=== PATIENT | female | born 1985 | race Caucasian/White ===

== ENCOUNTER 2017-09-06 17:46 | Emergency (ER) | payer OTHER ==
[2017-09-06] MEDS ORDERED: Sodium Chloride 0.9% 1,000 ML IV ONE (19:55)
--- NOTE | 2017-09-06 20:11 | C.PDOC ---
History Of Present Illness 32 y/o female with PMHx of Migraine presents to ED with complaints of constant epigastric abdominal pain for 1 week. Patient reports burning sensation and "warmth" to abdomen with associate nausea and x1 episode of vomiting. Patient states she is spitting a lot and has been burping a lot. Patient denies diarrhea , dysuria, back pain or any other complaints at this time. Time Seen by Provider: 09/06/17 19:37 Chief Complaint (Nursing): Abdominal Pain History Per: Patient History/Exam Limitations: no limitations Onset/Duration Of Symptoms: Days Current Symptoms Are (Timing): Still Present Location Of Pain/Discomfort: Epigastric Past Medical History Reviewed: Historical Data, Nursing Documentation, Vital Signs Vital Signs: Last Vital Signs Temp 99.5 F 09/06/17 19:46 Pulse 124 H 09/06/17 19:46 Resp 18 09/06/17 19:46 BP 126/90 09/06/17 19:46 Pulse Ox 98 09/06/17 21:12 - Medical History PMH: Depression, Gastritis, Migraine Surgical History: Cholecystectomy Family History: States: No Known Family Hx - Social History Hx Tobacco Use: No Hx Alcohol Use: No Hx Substance Use: No - Immunization History Hx Tetanus Toxoid Vaccination: No Hx Influenza Vaccination: No Hx Pneumococcal Vaccination: No Review Of Systems Constitutional: Negative for: Fever, Chills Gastrointestinal: Positive for: Nausea, Vomiting, Abdominal Pain. Negative for : Diarrhea Genitourinary: Negative for: Dysuria Musculoskeletal: Negative for: Back Pain Skin: Negative for: Rash Physical Exam - Physical Exam Appears: Non-toxic, No Acute Distress Skin: Warm, Dry, No Rash Head: Atraumatic, Normacephalic Eye(s): bilateral: Normal Inspection, PERRL, EOMI Oral Mucosa: Moist Neck: Normal ROM, Supple Cardiovascular: Rhythm Regular Respiratory: Normal Breath Sounds, No Rales, No Rhonchi, No Wheezing Gastrointestinal/Abdominal: Soft, No Tenderness, No Guarding, No Rebound Neurological/Psych: Oriented x3 ED Course And Treatment - Laboratory Results Result Diagrams: 09/06/17 20:37 09/06/17 20:37 ECG: Interpreted By Me, Viewed By Me ECG Rhythm: Sinus Tachycardia Rate From EC (bpm) O2 Sat by Pulse Oximetry: 98 (ra) Pulse Ox Interpretation: Normal Medical Decision Making Medical Decision Making: Impression: Gastritis Plan: ecg, Pepcid, Zofran On reassessment. Patient is resting comfortably, in no distress, abdomen is soft , no rebound or guarding, and is tolerating PO. Patient has no signs or symptoms to suggest surgical pathology. Patient was advised to follow up without fail with physician/clinic or to return to the ER for reevaluation in 1- 2 days. Disposition Counseled Patient/Family Regarding: Studies Performed, Diagnosis, Need For Followup, Rx Given - Disposition Referrals: [facility] [Outside] [facility] [Outside] Disposition: HOME/ ROUTINE Disposition Time: 21:06 Condition: GOOD Additional Instructions: Vaya a stephens mdico o la clnica en 2-5 phipps sin falta, para mas evaluacin. [place] los medicamentos cassie indicado. Volver a la macey de emergencia en cualquier momento si los sntomas persisten o empeoran. Prescriptions: Omeprazole 20 mg PO DAILY #20 capsule. Instructions: Gastritis (DC) Forms: fflick (Bermudian) Print Language: PERSIAN - POA Present On Arrival: None - Clinical Impression Clinical Impression: Gastritis - PA / IRONWORKER / Resident Statement MD/DO has reviewed & agrees with the documentation as recorded. - Scribe Statement The provider has reviewed the documentation as recorded by the Deborahibrafiq Lynn All medical record entries made by the Deborahibrafiq were at my direction and personally dictated by me. I have reviewed the chart and agree that the record accurately reflects my personal performance of the history, physical exam, medical decision making, and the department course for this patient. I have also personally directed, reviewed, and agree with the discharge instructions and disposition.
[2017-09-06 20:30] LABS: HCG,QUALITATIVE URINE NEGATIVE (NEGATIVE)
[2017-09-06 20:33] LABS: SQUAMOUS EPITHIAL 10 /hpf (0-5); URINE BACTERIA RARE (<OCC); URINE BILIRUBIN NEGATIVE (NEGATIVE); URINE BLOOD 2+ (NEGATIVE); URINE CLARITY Hazy (Clear); URINE COLOR Yellow (YELLOW); URINE GLUCOSE (UA) NORMAL (Normal); URINE LEUKOCYTE ESTERASE TRACE Leu/uL (Negative); URINE NITRATE NEGATIVE (NEGATIVE); URINE PROTEIN NEGATIVE (NEGATIVE)
[2017-09-06 20:48] LABS: BASO % 0.3 % (0.0-2.0); EOS % 0.1 % (0.0-4.0); HEMOGLOBIN 12.8 g/dL (11.0-16.0); LYMPH # 1.4 K/uL (1.0-4.3); LYMPH % 17.2 % (20.0-40.0); MEAN CORPUSCULAR HEMOGLOBIN 29.7 pg (27.0-31.0); MEAN CORPUSCULAR HGB CONC 34.1 g/dL (33.0-37.0); MEAN PLATELET VOLUME 9.8 fL (7.2-11.7); MONO # 0.4 K/uL (0.0-0.8); MONO % 4.3 % (0.0-10.0); NEUT # 6.4 K/uL (1.8-7.0); NEUT % 78.1 % (50.0-75.0); NRBC % 0.1 % (0.0-2.0); RBC 4.31 Mil/uL (3.80-5.20); RED CELL DISTRIBUTION WIDTH 13.4 % (11.5-14.5); WHITE BLOOD COUNT 8.3 K/uL (4.8-10.8)
[2017-09-06 21:03] LABS: ALB/GLOB RATIO 1.1 (1.0-2.1); ALBUMIN 4.1 g/dL (3.5-5.0); ALT/SGPT 86 U/L (9-52); AST/SGOT 46 U/L (14-36); BLOOD UREA NITROGEN 7 mg/dL (7-17); CALCIUM 8.2 mg/dl (8.6-10.4); GFR AFRICAN-AMERICAN > 60; GFR NON-AFRICAN AMERICAN > 60; LIPASE 29 U/L (23-300)
[2017-09-06 21:20] VITALS: BP 122/82; PULSE 104; RESP 104; TEMP 98.4; O2SAT 100
--- NOTE | 2017-09-07 11:54 | CARD ---
APPROVED REPORT EKG Measurement Heart [id number] <Conclusion> Sinus tachycardia ST & T wave abnormality, consider lateral ischemia Abnormal ECG
== END 2017-09-06 21:20 | disposition home or self-care (01) ==
LOC: C.ER 17:46
DX: K29.70 Gastritis, unspecified, without bleeding (principal)
CPT/HCPCS: 80053; 81001; 83690; 84703; 85025; 93005; 96360; 99284; J7040

== ENCOUNTER 2018-03-18 09:16 | Emergency (ER) | payer OTHER ==
[2018-03-18] MEDS ORDERED: Aluminum Hydroxide/Magnesium Hydroxide Susp (30 mL) PO STA (09:37)
[2018-03-18] MEDS ORDERED: Sodium Chloride 0.9% 1,000 ML IV ONE (09:37)
--- NOTE | 2018-03-18 09:50 | C.PDOC ---
History Of Present Illness 33 year old female presents to ED for evaluation of epigastric abdominal pain radiating to umbilical area and midabdomen for the last 3 days. Patient admits to nausea and diarrhea. Pain is described as burning and is worse after eating. Otherwise, denies vomiting, blood in stool, dysuria, hematuria, urinary frequency, back pain, fever, or chills. LMP: "In September" this year, notes receiving depo injection. Time Seen by Provider: 03/18/18 09:30 Chief Complaint (Nursing): GI Problem History Per: Patient History/Exam Limitations: no limitations Onset/Duration Of Symptoms: Days (3) Current Symptoms Are (Timing): Still Present Location Of Pain/Discomfort: Epigastric Quality Of Discomfort: Burning Associated Symptoms: Nausea, Diarrhea. denies: Fever, Chills, Vomiting Exacerbating Factors: Food Alleviating Factors: None Recent travel outside of the [place]: No Additional History Per: Patient Past Medical History Reviewed: Historical Data, Nursing Documentation, Vital Signs Vital Signs: Last Vital Signs Temp 98 F 03/18/18 11:09 Pulse 86 03/18/18 11:09 Resp 18 03/18/18 11:09 BP 136/72 03/18/18 11:09 Pulse Ox 98 03/18/18 11:09 - Medical History PMH: Gastritis, Migraine Denies: Depression Surgical History: Cholecystectomy Family History: States: Unknown Family Hx - Social History Hx Tobacco Use: No Hx Alcohol Use: No Hx Substance Use: No - Immunization History Hx Tetanus Toxoid Vaccination: No Hx Influenza Vaccination: No Hx Pneumococcal Vaccination: No Review Of Systems Constitutional: Negative for: Fever, Chills, Malaise Eyes: Negative for: Vision Change Cardiovascular: Negative for: Chest Pain Respiratory: Negative for: Shortness of Breath Gastrointestinal: Positive for: Nausea, Abdominal Pain, Diarrhea. Negative for : Vomiting, Melena, Hematochezia, Rectal Pain Genitourinary: Negative for: Dysuria, Frequency, Hematuria, Vaginal Discharge Musculoskeletal: Negative for: Back Pain Skin: Negative for: Rash Neurological: Negative for: Headache Physical Exam - Physical Exam Appears: Non-toxic, No Acute Distress Skin: Normal Color, Warm, Dry Head: Atraumatic, Normacephalic Eye(s): bilateral: Normal Inspection, EOMI Oral Mucosa: Moist Neck: Normal ROM, Supple Chest: Symmetrical Cardiovascular: Rhythm Regular, No Murmur Respiratory: Normal Breath Sounds, No Rales, No Rhonchi, No Wheezing Gastrointestinal/Abdominal: Bowel Sounds, Soft, Tenderness (mild epigastric), No Distention, No Guarding, No Rebound, No Hernia Back: No CVA Tenderness Extremity: Normal ROM, No Tenderness, No Deformity Neurological/Psych: Oriented x3, Normal Speech ED Course And Treatment - Laboratory Results Result Diagrams: 03/18/18 09:50 03/18/18 09:50 O2 Sat by Pulse Oximetry: 100 (RA) Pulse Ox Interpretation: Normal Medical Decision Making Medical Decision Making: Impression: 33 year old female with epigastric abdominal pain, nausea, and diarrhea. Plan: * Blood work * Urinalysis * Maalox, Pepcid, IV fluids Labs reviewed with no acute findings. Discussed results with patient, and copy of report was provided. On re- examination, patient is resting comfortably in no acute distress. Patient reports improvement of abdominal pain. Abdomen is flat not rigid and no guarding to suggest any surgical pathology. Based on clinical history and findings, no further ER management as symptoms likely related to gastritis or GERD. I recommend to patient change diet to avoid any caffeine or acidic products. Patient feels comfortable going home and will be discharged. Patient given follow up instructions. Instructed to return to ER if symptoms worsen or new symptoms arise. Disposition Counseled Patient/Family Regarding: Diagnosis, Need For Followup, Rx Given - Disposition Referrals: [facility] [Outside] [facility] [Outside] [facility] [Outside] Disposition: HOME/ ROUTINE Disposition Time: 10:54 Condition: STABLE Additional Instructions: Evite la cafena o cualquier comida elizabeth. No tome Advil o Aspirin jesus al menos algunas semanas hasta que desaparezca el dolor Clarkrange pepcid diariamente Seguimiento en la clnica Prescriptions: Famotidine [Pepcid] 20 mg PO DAILY #20 tab Ranitidine HCl 150 mg PO BID #30 tablet Instructions: Gastritis (DC), Ulcer and Gastritis Diet Print Language: HUNGARIAN - POA Present On Arrival: None - Clinical Impression Clinical Impression: Gastritis - PA / IV THERAPY NURSE / Resident Statement MD/DO has reviewed & agrees with the documentation as recorded. - Scribe Statement The provider has reviewed the documentation as recorded by the Deborahibrafiq Alvarado All medical record entries made by the Deborahibrafiq were at my direction and personally dictated by me. I have reviewed the chart and agree that the record accurately reflects my personal performance of the history, physical exam, medical decision making, and the department course for this patient. I have also personally directed, reviewed, and agree with the discharge instructions and disposition.
[2018-03-18] MEDS ORDERED: Aluminum Hydroxide/Magnesium Hydroxide Susp (30 mL) ONE (09:53)
[2018-03-18] MEDS ORDERED: Sodium Chloride 0.9% 1,000 ML ONE (09:53)
[2018-03-18 10:04] LABS: BASO % 0.5 % (0.0-2.0); EOS # 0.3 K/uL (0.0-0.7); EOS % 4.4 % (0.0-4.0); LYMPH # 2.4 K/uL (1.0-4.3); LYMPH % 40.1 % (20.0-40.0); MEAN CELL VOLUME 87.6 fL (81.0-99.0); MEAN CORPUSCULAR HEMOGLOBIN 29.3 pg (27.0-31.0); MEAN CORPUSCULAR HGB CONC 33.4 g/dL (33.0-37.0); MEAN PLATELET VOLUME 9.1 fL (7.2-11.7); MONO # 0.4 K/uL (0.0-0.8); MONO % 6.7 % (0.0-10.0); NEUT # 2.9 K/uL (1.8-7.0); NEUT % 48.3 % (50.0-75.0); RBC 4.45 Mil/uL (3.80-5.20)
[2018-03-18 10:12] LABS: HCG,QUALITATIVE URINE NEGATIVE (NEGATIVE); SQUAMOUS EPITHIAL 1 /hpf (0-5); URINE BILIRUBIN NEGATIVE (NEGATIVE); URINE BLOOD 1+ (NEGATIVE); URINE CLARITY Clear (Clear); URINE COLOR Yellow (YELLOW); URINE GLUCOSE (UA) NORMAL (Normal); URINE LEUKOCYTE ESTERASE NEG Leu/uL (Negative); URINE PROTEIN NEGATIVE (NEGATIVE); URINE UROBILINOGEN NORMAL mg/dL (0.2-1.0)
[2018-03-18 10:52] LABS: ALB/GLOB RATIO 1.2 (1.0-2.1); ALBUMIN 4.3 g/dL (3.5-5.0); ALT/SGPT 23 U/L (9-52); AMYLASE 93 U/L (30-110); AST/SGOT 21 U/L (14-36); BLOOD UREA NITROGEN 8 mg/dL (7-17); CALCIUM 9.3 mg/dl (8.6-10.4); GFR AFRICAN-AMERICAN > 60; GFR NON-AFRICAN AMERICAN > 60; LIPASE 35 U/L (23-300)
[2018-03-18 11:10] VITALS: BP 136/72; PULSE 86; RESP 18; TEMP 98
[2018-03-18 13:14] VITALS: O2SAT 100
== END 2018-03-18 11:10 | disposition home or self-care (01) ==
LOC: C.ER 09:16
DX: K29.70 Gastritis, unspecified, without bleeding (principal)
CPT/HCPCS: 80053; 81001; 82150; 83690; 84703; 85025; 96374; 99284; J7030

== ENCOUNTER 2018-09-04 08:22 | Emergency (ER) | payer OTHER ==
[2018-09-04 08:29] VITALS: BMI 24.7
[2018-09-04] MEDS ORDERED: Sodium Chloride 0.9% 1,000 ML IV STA (08:48)
[2018-09-04] MEDS ORDERED: Sodium Chloride 0.9% 1,000 ML ONE (09:00)
[2018-09-04 09:06] LABS: BASO % 0.8 % (0.0-2.0); EOS # 0.2 K/uL (0.0-0.7); EOS % 3.2 % (0.0-4.0); HEMOGLOBIN 13.5 g/dL (11.0-16.0); LYMPH # 2.1 K/uL (1.0-4.3); LYMPH % 33.9 % (20.0-40.0); MEAN CORPUSCULAR HGB CONC 33.5 g/dL (33.0-37.0); MEAN PLATELET VOLUME 9.6 fL (7.2-11.7); MONO # 0.3 K/uL (0.0-0.8); MONO % 5.6 % (0.0-10.0); NEUT # 3.4 K/uL (1.8-7.0); NEUT % 56.5 % (50.0-75.0); NRBC % 0.1 % (0.0-2.0); RBC 4.5 Mil/uL (3.80-5.20); RED CELL DISTRIBUTION WIDTH 13.7 % (11.5-14.5); WHITE BLOOD COUNT 6.1 K/uL (4.8-10.8)
[2018-09-04 09:07] LABS: MEAN CELL VOLUME 89.6 fL (81.0-99.0)
[2018-09-04 09:19] LABS: ALB/GLOB RATIO 1.4 (1.0-2.1); ALBUMIN 4.6 g/dL (3.5-5.0); ALT/SGPT 41 U/L (9-52); AST/SGOT 44 U/L (14-36); BLOOD UREA NITROGEN 9 mg/dL (7-17); CALCIUM 9.3 mg/dl (8.6-10.4); GFR NON-AFRICAN AMERICAN > 60; LIPASE 38 U/L (23-300)
[2018-09-04 09:25] LABS: SQUAMOUS EPITHIAL 2 /hpf (0-5); URINE BACTERIA RARE (<OCC); URINE BILIRUBIN NEGATIVE (NEGATIVE); URINE BLOOD 3+ (NEGATIVE); URINE CLARITY Clear (Clear); URINE COLOR Yellow (YELLOW); URINE GLUCOSE (UA) NORMAL (Normal); URINE LEUKOCYTE ESTERASE NEG Leu/uL (Negative); URINE PROTEIN NEGATIVE (NEGATIVE)
[2018-09-04 09:28] LABS: HCG,QUALITATIVE URINE NEGATIVE (NEGATIVE)
--- NOTE | 2018-09-04 11:39 | C.PDOC ---
History Of Present Illness 33 year old female presents to the ED complaining of intermittent epigastric pain associated with nausea for 2 weeks. Also complains of feeling hot in the abdomen region. Denies any vomiting, diarrhea, fever, chills, chest pain, back pain, dysuria, hematuria, or radiation of pain. Reports she has been taking OTC Pepcid 20mg with no improvement. Time Seen by Provider: 09/04/18 08:33 Chief Complaint (Nursing): GI Problem History Per: Patient History/Exam Limitations: no limitations Onset/Duration Of Symptoms: Days Current Symptoms Are (Timing): Still Present Location Of Pain/Discomfort: Epigastric Radiation Of Pain To:: None Associated Symptoms: Nausea. denies: Fever, Chills, Vomiting, Diarrhea, Back Pain, Chest Pain, Urinary Symptoms Past Medical History Reviewed: Historical Data, Nursing Documentation, Vital Signs Vital Signs: Last Vital Signs Temp 99.2 F 09/04/18 08:29 Pulse 125 H 09/04/18 08:29 Resp 18 09/04/18 08:29 BP 133/85 09/04/18 08:29 Pulse Ox 100 09/04/18 08:29 - Medical History PMH: Gastritis, Migraine Denies: Depression Surgical History: Cholecystectomy Family History: States: No Known Family Hx - Social History Hx Tobacco Use: No Hx Alcohol Use: No Hx Substance Use: No - Immunization History Hx Tetanus Toxoid Vaccination: No Hx Influenza Vaccination: No Hx Pneumococcal Vaccination: No Review Of Systems Except As Marked, All Systems Reviewed And Found Negative. Constitutional: Negative for: Fever, Chills Cardiovascular: Negative for: Chest Pain Gastrointestinal: Positive for: Nausea, Abdominal Pain. Negative for: Vomiting, Diarrhea Genitourinary: Negative for: Dysuria, Hematuria Musculoskeletal: Negative for: Back Pain Physical Exam - Physical Exam Appears: Non-toxic, No Acute Distress Skin: Warm, Dry, No Rash Head: Normacephalic Eye(s): bilateral: Normal Inspection Nose: Normal Oral Mucosa: Moist Neck: Supple Chest: Symmetrical Cardiovascular: Rhythm Regular Respiratory: Normal Breath Sounds, No Rales, No Rhonchi, No Wheezing Gastrointestinal/Abdominal: Soft, Tenderness (Epigastric region and RUQ), No Distention, No Guarding, No Rebound Back: No CVA Tenderness Extremity: Bilateral: Atraumatic, No Pedal Edema, Normal Color And Temperature Neurological/Psych: Oriented x3, Normal Speech Gait: Steady ED Course And Treatment - Laboratory Results Result Diagrams: 09/04/18 08:58 09/04/18 08:58 Lab Results: Total Bilirubin 0.4 mg/dL (0.2-1.3) 09/04/18 08:58 AST 44 U/L (14-36) H D 09/04/18 08:58 ALT 41 U/L (9-52) 09/04/18 08:58 Alkaline Phosphatase 70 U/L (38-126) 09/04/18 08:58 Total Protein 8.0 g/dL (6.3-8.3) 09/04/18 08:58 Albumin 4.6 g/dL (3.5-5.0) 09/04/18 08:58 Globulin 3.4 gm/dL (2.2-3.9) 09/04/18 08:58 Albumin/Globulin Ratio 1.4 (1.0-2.1) 09/04/18 08:58 Lipase 38 U/L (23-300) 09/04/18 08:58 Urine Color Yellow (YELLOW) 09/04/18 08:58 Urine Clarity Clear (Clear) 09/04/18 08:58 Urine pH 5.0 (5.0-8.0) 09/04/18 08:58 Ur Specific [place] 1.025 (1.003-1.030) 09/04/18 08:58 Urine Protein Negative mg/dL (NEGATIVE) 09/04/18 08:58 Urine Glucose (UA) Normal mg/dL (Normal) 09/04/18 08:58 Urine Ketones Negative mg/dL (NEGATIVE) 09/04/18 08:58 Urine Blood 3+ (NEGATIVE) H 09/04/18 08:58 Urine Nitrate Negative (NEGATIVE) 09/04/18 08:58 Urine Bilirubin Negative (NEGATIVE) 09/04/18 08:58 Urine Urobilinogen 2.0 mg/dL (0.2-1.0) H 09/04/18 08:58 Ur Leukocyte Esterase Neg Bev/uL (Negative) 09/04/18 08:58 Urine WBC (Auto) 2 /hpf (0-5) 09/04/18 08:58 Urine RBC (Auto) 9 /hpf (0-3) H 09/04/18 08:58 Ur Squamous Epith Cells 2 /hpf (0-5) 09/04/18 08:58 Urine Bacteria Rare (<OCC) 09/04/18 08:58 Urine HCG, Qual Negative (NEGATIVE) 09/04/18 08:58 Urine HCG, Qual Negative (NEGATIVE) 09/04/18 08:58 O2 Sat by Pulse Oximetry: 100 (RA) Pulse Ox Interpretation: Normal - CT Scan/US US ABD Other Rad Studies (CT/US): Read By Radiologist, Radiology Report Reviewed CT/US Interpretation: Accession No. : [id number]. Patient Name / ID : BEVERLY Vila / [id number]. Exam Date : 09/04/2018 09:25:33 ( Approved ). Study Comment : Sex / Age : F / 33Y. Creator : Khadijah Arteaga. Dictator : Lon Turner MD. Elect Equip Maint Eng : Ring Striker : Lon Turner MD. Approver2 : Report Date : 09/04/2018 09:49:18. My Comment : . Date of service: 09/04/2018. HISTORY: epigastric/RUQ pain. COMPARISON: None. TECHNIQUE: Sonographic evaluation of the right upper quadrant of the abdomen. FINDINGS: LIVER: Measures 16.1 cm in length. Normal echogenicity of the liver parenchyma. Normal main portal and hepatic venous blood flow identified. No definite mass. No intrahepatic bile duct dilatation. GALLBLADDER: Not identified due to prior cholecystectomy. COMMON BILE DUCT: Measures 6.1 mm. No stones. No dilatation. PANCREAS: The tail of the pancreas is obscured by overlying bowel gas with remainder unremarkable. RIGHT KIDNEY: Measures 9.7 cm in length. Normal echogenicity. No calculus, mass, or hydronephrosis. AORTA: No aneurysmal dilatation. IVC: Unremarkable. OTHER FINDINGS: None . IMPRESSION: Prior cholecystectomy. No choledocholithiasis within an unremarkable appearing common bile duct as imaged. Partial imaging of the pancreas due to overlying bowel gas with remainder of this limited abdomen ultrasound otherwise unremarkable. Progress Note: Blood and urine collected and sent to the lab for analysis. Patient treated with Protonix 40mg IVP and Zofran 4mg IVP. Abdomen US ordered. On reeval, patient reports improvement of symptoms. Patient given follow up instructions. Instructed to return to ER if symptoms worsen or new symptoms arise. Reassessment Condition: Improved Disposition - Disposition Disposition: HOME/ ROUTINE Disposition Time: 13:57 Condition: STABLE Additional Instructions: Follow up with PMD and Chartered Accountant within 2-3 days. Return to ED if feel worse. Prescriptions: Omeprazole 40 mg PO QAM #30 capsule. 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 - Scribe Statement The provider has reviewed the documentation as recorded by the Scribe Liv Briceno All medical record entries made by the Deborahibrafiq were at my direction and personally dictated by me. I have reviewed the chart and agree that the record accurately reflects my personal performance of the history, physical exam, medical decision making, and the department course for this patient. I have also personally directed, reviewed, and agree with the discharge instructions and disposition.
[2018-09-04 12:45] VITALS: BP 126/79; PULSE 80; RESP 20; TEMP 98.9
--- NOTE | 2018-09-04 13:50 | US ---
Date of service: 09/04/2018 HISTORY: epigastric/RUQ pain COMPARISON: None. TECHNIQUE: Sonographic evaluation of the right upper quadrant of the abdomen. FINDINGS: LIVER: Measures 16.1 cm in length. Normal echogenicity of the liver parenchyma. Normal main portal and hepatic venous blood flow identified. No definite mass. No intrahepatic bile duct dilatation. GALLBLADDER: Not identified due to prior cholecystectomy. COMMON BILE DUCT: Measures 6.1 mm. No stones. No dilatation. PANCREAS: The tail of the pancreas is obscured by overlying bowel gas with remainder unremarkable. RIGHT KIDNEY: Measures 9.7 cm in length. Normal echogenicity. No calculus, mass, or hydronephrosis. AORTA: No aneurysmal dilatation. IVC: Unremarkable. OTHER FINDINGS: None . IMPRESSION: Prior cholecystectomy. No choledocholithiasis within an unremarkable appearing common bile duct as imaged. Partial imaging of the pancreas due to overlying bowel gas with remainder of this limited abdomen ultrasound otherwise unremarkable.
[2018-09-04 14:02] VITALS: O2SAT 100
== END 2018-09-04 14:24 | disposition home or self-care (01) ==
LOC: C.ER 08:22
DX: R10.13 Epigastric pain (principal)
CPT/HCPCS: 76705; 80053; 81001; 83690; 84703; 85025; 96361; 96374; 96375; 99285; C9113; J2405; J7030